=== PATIENT | male | born 1945 | race Caucasian/White ===

== ENCOUNTER 2017-03-09 21:37 | Emergency (ER) | payer MEDICARE, BC, OTHER ==
[2017-03-10 01:17] LABS: Hematocrit 48 % (42-52); Hemoglobin 16.2 g/dl (14.0-18.0); Mean Corpuscular HGB Conc 34 g/dl (31-36); Mean Corpuscular Hemoglobin 30 pg (27-31); Mean Corpuscular Volume 88 fL (80-94); Mean Platelet Volume 8 um3 (7.4-10.4); Red Blood Count 5.41 10^6/ul (4.0-5.4); Red Cell Distribution Width 14 % (10.5-15); White Blood Count 11.1 10^3/ul (3.5-10.8)
[2017-03-10 01:22] LABS: Add Diff/Slide Review? Slide Review Added; Comments Flag Yes
[2017-03-10 01:25] LABS: Albumin 4.4 g/dL (3.2-5.2); BUN/Creatinine Ratio 22.8 (8-20); EGFR African American 93.9 (>60); Globulin 2.4 g/dL (2-4); Total Bilirubin 0.9 mg/dL (0.2-1.0); Total Protein 6.8 g/dL (6.4-8.9)
[2017-03-10 01:27] LABS: Troponin I 0.01 ng/mL (<0.04)
--- NOTE | 2017-03-10 02:22 | ED ---
Kim Ahn Alfonso, scribed for Frank Larkin on 03/10/17 at 0112 . Palpitations / Dysrhythmia - HPI Summary HPI Summary: This patient is a 71 year old M presenting to [facility] with a chief complaint of palpitations since earlier today. The CC is described as you can feel it pumping more and beating a little harder. Pt rates the pain 1/10 in severity. Symptoms aggravated by exertion and alleviated by spontaneous resolution. Pt denies CP, SOB, abdominal pain, N/V, and sciatic pain. PMHx of sciatic pain. - History of Current Complaint Chief Complaint: EDBackInjuryPain Time Seen by Provider: 03/10/17 00:18 Hx Obtained From: Patient Onset/Duration: Sudden Onset, Lasting Hours - Earlier today, Still Present Timing: Intermittent Episodes Lasting: - unspecified Severity Initially: Moderate Severity Currently: Moderate Aggravating: Exertion Associated Signs & Symptoms: Negative - Allergy/Home Medications Allergies/Adverse Reactions: Allergies Allergy/AdvReac Type Severity Reaction Status Date / Time No Known Allergies Allergy Verified 06/29/16 10:50 PMH/Surg Hx/FS Hx/Imm Hx Endocrine/Hematology History: Denies: Hx Diabetes, Hx Thyroid Disease Cardiovascular History: Reports: Hx Angina, Hx Hypercholesterolemia, Hx Hypertension, Other Cardiovascular Problems/Disorders - HIGH CHOLESTEROL Denies: Hx Pacemaker/ICD Respiratory History: Denies: Hx Asthma, Hx Chronic Obstructive Pulmonary Disease (COPD) GI History: Reports: Hx Gall Bladder Disease - Gall bladder removed, Hx Gastroesophageal Reflux Disease - PRN OMEPRAZOLE AND SIMETHICONE, Other GI Disorders - Flat colon polyps removed surgically. 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 10 years ago; gall bladder out. 08/2013 Lap -REMOVAL OF 4" OF colon polyp removal Hx Anesthesia Reactions: No - Immunization History Date of Tetanus Vaccine: Unk Date of Influenza Vaccine: 08/25 Infectious Disease History: No Infectious Disease History: Denies: Hx Hepatitis, Hx Human Immunodeficiency Virus (HIV), History Other Infectious Disease, Traveled Outside the [place] in Last 30 Days - Family History Known Family History: Positive: Hypertension - Social History Alcohol Use: None Substance Use Type: Reports: None Smoking Status (MU): Never Smoked Tobacco Review of Systems Positive: Palpitations. Negative: Chest Pain Negative: Shortness Of Breath Negative: Abdominal Pain, Vomiting, Nausea Positive: Other - Negative sciatic pain All Other Systems Reviewed And Are Negative: Yes Physical Exam Triage Information Reviewed: Yes Vital Signs On Initial Exam: Initial Vitals Temp Pulse Resp BP Pulse Ox 97.9 F 69 18 158/71 100 03/09/17 21:53 03/09/17 21:53 03/09/17 21:53 03/09/17 21:53 03/09/17 21:53 Vital Signs Reviewed: Yes Appearance: Positive: Well-Appearing, No Pain Distress Skin: Positive: Warm, Skin Color Reflects Adequate Perfusion, Dry Head/Face: Positive: Normal Head/Face Inspection Eyes: Positive: EOMI, FLACO ENT: Positive: Normal ENT inspection Neck: Positive: Supple, Nontender Respiratory/Lung Sounds: Positive: Clear to Auscultation, Breath Sounds Present Cardiovascular: Positive: RRR, Pulses are Symmetrical in both Upper and Lower Extremities Abdomen Description: Positive: Nontender, Soft Bowel Sounds: Positive: Present Musculoskeletal: Positive: Normal, Strength/ROM Intact Neurological: Positive: Normal, Sensory/Motor Intact, Alert, Oriented to Person Place, Time - Amelie Coma Scale Coma Scale Total: 15 Diagnostics - Vital Signs Vital Signs Temp Pulse Resp BP Pulse Ox 03/09/17 22:49 98 F 68 16 148/83 96 03/09/17 21:53 97.9 F 69 18 158/71 100 - Laboratory Result Diagrams: 03/10/17 01:00 03/10/17 01:00 Lab Statement: Any lab studies that have been ordered have been reviewed, and results considered in the medical decision making process. - Radiology CXR Radiology Interpretation Completed By: ED Physician - Negative exam. - EKG 0146 Cardiac Rate: Bradycardia - BPM 56 EKG Rhythm: Sinus Bradycardia Course/Dx - Course Assessment/Plan: 71 year old M presenting to [facility] with a chief complaint of palpitations since earlier today. Symptoms aggravated by exertion and alleviated by spontaneous resolution. Pt denies CP, SOB, abdominal pain, N/V, and sciatic pain. CXR reveals negative exam. An EKG reveals SB. Patient will be discharged with follow up from PCP. Pt is agreeable with this plan. - Diagnoses Provider Diagnoses: Heart palpitations Discharge - Discharge Plan Condition: Stable Disposition: HOME Patient Education Materials: Palpitations (ED) Referrals: Sushant Alves MD [Primary Care Provider] - 3 Days The documentation as recorded by the Kim magana Alfonso accurately reflects the service I personally performed and the decisions made by Trae mcneal Emmanuel.
[2017-03-10 02:40] VITALS: BP 126/79
--- NOTE | 2017-03-10 12:50 | RAD ---
INDICATION: Palpitations COMPARISON: Most recent comparison chest x-rays dated May 15, 2015 TECHNIQUE: Single AP portable view of the chest was obtained. FINDINGS: Image quality is compromised due to the relative inferiority of a portable chest x-ray. The heart and mediastinum exhibit normal size and contour. The lungs are grossly clear. There is no evidence of a large pleural effusion. Visualized bones are normal for the patient's age. IMPRESSION: No radiographic evidence for acute cardiopulmonary abnormality on this portable chest x-ray.
== END 2017-03-10 02:40 | disposition home or self-care (01) ==
LOC: ED 21:37
DX: R00.2 Palpitations (principal)
CPT/HCPCS: 36415; 71010; 80053; 83605; 83880; 84484; 85025; 85610; 85730; 93005; 99282

== ENCOUNTER 2017-03-10 15:25 | Emergency (ER) | payer MEDICARE, BC, OTHER ==
[2017-03-10 15:32] VITALS: BP 176/81
== END 2017-03-10 16:32 | disposition left against medical advice (07) ==
LOC: ED 15:25
DX: R07.89 Other chest pain (principal); Z53.21 Procedure and treatment not carried out due to patient leaving prior to being seen by health care provider
CPT/HCPCS: 93005; 99281

== ENCOUNTER 2018-01-26 20:07 | Emergency (ER) | payer MEDICARE, BC, OTHER ==
[2018-01-26 20:20] VITALS: BP 155/70
[2018-01-26] MEDS ORDERED: Tetracaine 0.5% OPTH.SOL 4 ML* 1 DROP BTL RIGHT EYE ONE (20:35)
--- NOTE | 2018-01-26 20:38 | UC ---
Eye Complaint HPI - HPI Summary HPI Summary: PATIENT WAS GRINDING METAL YESTERDAY AFTERNOON WHEN HE FELT SOMETHING GO INTO HIS RIGHT EYE. HE FLUSHED IT WITH WATER BUT HAS HAD PERSISTENT IRRITATION, REDNESS AND TEARING SINCE IT HAPPENED. NO VISUAL DISTURBANCE. NO FEVER, HEADACHE, NAUSEA. WAS NOT WEARING ANY EYE PROTECTION AT THE TIME. HAS BEEN RUBBING HIS EYES A LOT. UNKNOWN DATE OF LAST TETANUS. - History of Current Complaint Chief Complaint: UCEye Stated Complaint: EYE COMPLAINT Time Seen by Provider: 01/26/18 20:31 Hx Obtained From: Patient Onset/Duration: Sudden Onset, Lasting Days - 1 DAY, Still Present Timing: Constant Severity Initially: Mild Severity Currently: Mild Pain Intensity: 1 Pain Scale Used: 0-10 Numeric Location of Injury: Globe Character: Foreign Body Sensation Aggravating Factor(s): Nothing Alleviating Factor(s): Nothing Associated Signs And Symptoms: Positive: Drainage (Clear). Negative: Photophobia, Vision Impairment Bilateral - Allergies/Home Medications Allergies/Adverse Reactions: Allergies Allergy/AdvReac Type Severity Reaction Status Date / Time No Known Allergies Allergy Verified 01/26/18 20:19 PMH/Surg Hx/FS Hx/Imm Hx Endocrine History: Dyslipidemia GI/ History: Gastroesophageal Reflux - Surgical History Surgical History: Yes Surgery Procedure, Year, and Place: 15 years ago; Rt hip repair. 10 years ago; gall bladder out. 08/2013 Lap -REMOVAL OF 4" OF colon polyp removal - Family History Known Family History: Positive: Hypertension - Social History Alcohol Use: None Substance Use Type: None Smoking Status (MU): Never Smoked Tobacco - Immunization History Most Recent Influenza Vaccination: 2013 Most Recent Tetanus Shot: Less than 10 yrs ago Most Recent Pneumonia Vaccination: 2013 Review of Systems Constitutional: Negative Skin: Negative Eyes: Drainage, Eye Redness, Other - FB RIGHT EYE Respiratory: Negative Cardiovascular: Negative Gastrointestinal: Negative All Other Systems Reviewed And Are Negative: Yes Physical Exam Triage Information Reviewed: Yes Appearance: Well-Appearing, No Pain Distress, Well-Nourished Vital Signs: Initial Vital Signs Temp 98.1 F 01/26/18 20:11 Pulse 58 01/26/18 20:11 Resp 16 01/26/18 20:11 BP 155/70 01/26/18 20:11 Pulse Ox 98 01/26/18 20:11 Vital Signs Reviewed: Yes Eyes: Positive: Conjunctiva Inflamed - RIGHT EYE, Other: - FB 9 O'CLOCK POSITION RIGHT EYE ENT: Positive: Hearing grossly normal Neck: Positive: Supple Respiratory: Positive: No respiratory distress, No accessory muscle use Cardiovascular: Positive: Pulses Normal Abdomen Description: Positive: Soft Musculoskeletal: Positive: No Edema Neurological: Positive: Alert Psychological: Positive: Age Appropriate Behavior Skin: Negative: rashes Eye Complaint Course/Dx - Course Course Of Treatment: 1 DROP TETRACAINE INSTILLED INTO RIGHT EYE. ATTEMPTED UNSUCCESSFULLY TO REMOVE FB USING 18 GAUGE NEEDLE. COVER WITH CIPRO EYE DROPS. BOOST TDAP. F/U OPHTH TOMORROW FOR REMOVAL. - Differential Dx/Diagnosis Provider Diagnoses: FB RIGHT EYE -RETAINED Discharge - Sign-Out/Discharge Documenting (check all that apply): Discharge/Admit/Transfer - Discharge Plan Condition: Stable Disposition: HOME Patient Education Materials: Eye Foreign Body (ED) Referrals: Luis Horton MD [Medical Doctor] - If Needed Papa Thornton MD [Medical Doctor] - 1 Day Janusz Caballero MD [Medical Doctor] - 1 Day Additional Instructions: UNABLE TO REMOVE FOREIGN BODY IN YOUR RIGHT EYE TODAY. USE THE ANTIBIOTIC EYEDROPS PRESCRIBED AND CALL OPHTHALMOLOGY FIRST THING IN THE MORNING FOR A FOLLOW-UP APPOINTMENT. TETANUS IMMUNIZATION GIVEN (TDAP): You have been given an immunization against tetanus. Please record this in your records. In general, a booster is needed only once every 10 years. The tetanus shot protects against tetanus or "lockjaw," which is a complication of certain wound infections (the tetanus shot cannot protect against the actual infection). The immunization site may become warm and red due to local reaction. If this occurs, apply warm compresses and take aspirin or ibuprofen to reduce inflammation and discomfort. Return for evaluation if the reaction becomes severe. - Billing Disposition and Condition Condition: STABLE Disposition: Home
[2018-01-26] MEDS ORDERED: Ciprofloxacin 0.3% OPTH.SOL* 2.5 ML BTL RIGHT EYE ONE (20:47)
[2018-01-26] MEDS ORDERED: Tetan/Diph/Pertus SYR(Tdap)* 0.5 ML SYR(BOOSTRIX) use SYR IM ONE (20:52)
== END 2018-01-26 21:15 | disposition home or self-care (01) ==
LOC: UCEAST 20:07
DX: H02.813 Retained foreign body in right eye, unspecified eyelid (principal); Z18.10 Retained metal fragments, unspecified; Z23 Encounter for immunization; E78.5 Hyperlipidemia, unspecified; K21.9 Gastro-esophageal reflux disease without esophagitis; Z82.49 Family history of ischemic heart disease and other diseases of the circulatory system
CPT/HCPCS: 90471; 90715; 99212; A9270-GY; G0463

== ENCOUNTER 2018-01-27 05:07 | Emergency (ER) | payer MEDICARE, BC ==
[2018-01-27 05:38] LABS: ABS Basophils 0 10^3/ul (0-0.2); ABS Eosinophils 0.1 10^3/ul (0-0.6); ABS Monocytes 0.5 10^3/ul (0-0.8); ABS Neutrophils 5.4 10^3/ul (1.5-7.7); ABS Nucleated RBC 0 10^3/ul; Eosinophil % 1.1 % (0-6); Hematocrit 45 % (42-52); Hemoglobin 15.8 g/dl (14.0-18.0); Lymphocyte % 24.8 % (25-47); Mean Corpuscular HGB Conc 35 g/dl (31-36); Mean Corpuscular Hemoglobin 31 pg (27-31); Mean Corpuscular Volume 86 fL (80-94); Mean Platelet Volume 7.5 um3 (7.4-10.4); Nucleated Red Blood Cells % 0.1; Platelet Count 203 10^3/ul (150-450); Red Cell Distribution Width 13 % (10.5-15)
[2018-01-27 05:45] LABS: INR 0.95 (0.77-1.02)
[2018-01-27 05:47] LABS: Urine Appearance Clear; Urine Blood 2+ (Negative); Urine Color Yellow; Urine Ketones Negative (Negative); Urine Protein 1+(30 mg/dL) (Negative); Urine Red Blood Cell 3+(>10/hpf) (Absent); Urine Specific Gravity 1.025 (1.010-1.030); Urine Urobilinogen Negative (Negative); Urine White Blood Cell Trace(0-5/hpf) (Absent)
[2018-01-27 05:59] LABS: EGFR Non-African American 54.4 (>60)
[2018-01-27] MEDS ORDERED: Ketorolac INJ* 30 MG/ML 1 ML VIAL IV PUSH ONE (06:08)
[2018-01-27] MEDS ORDERED: NS 0.9% 1000 ML* 1,000 ML IV ONE ×2 (06:08→07:28)
--- NOTE | 2018-01-27 07:52 | ED ---
Back Pain - HPI Summary HPI Summary: Patient presents with right-sided flank pain which woke him up at 3:00 this morning. He reports this is a "annoying" pain at about 4-5 out of 10. He has not tried anything prior to arrival. He reports the pain is constant. He denies dysuria, urinary frequency, urinary urgency, hematuria, testicular or penile pain. He has had a history of kidney stones and this presented with dysuria. He denies fevers, chills, headache, chest pain, shortness of breath, lower abdominal pain, skin changes, nausea, vomiting, diarrhea. Last ate last night. - History of Current Complaint Chief Complaint: EDFlankPain Stated Complaint: FLANK PAIN Time Seen by Provider: 01/27/18 05:50 Hx Obtained From: Patient Pain Intensity: 5 - Allergies/Home Medications Allergies/Adverse Reactions: Allergies Allergy/AdvReac Type Severity Reaction Status Date / Time No Known Allergies Allergy Verified 01/26/18 20:19 PMH/Surg Hx/FS Hx/Imm Hx Previously Healthy: Yes Endocrine/Hematology History: Denies: Hx Anticoagulant Therapy - ASA DAILY, Hx Blood Disorders, Hx Diabetes , Hx Thyroid Disease Cardiovascular History: Reports: Hx Angina, Hx Hypercholesterolemia - takes a statin, Hx Hypertension - no med Denies: Hx Pacemaker/ICD Respiratory History: Denies: Hx Asthma, Hx Chronic Obstructive Pulmonary Disease (COPD) GI History: Reports: Hx Gall Bladder Disease - Gall bladder removed, Hx Gastroesophageal Reflux Disease - PRN OMEPRAZOLE AND SIMETHICONE, Other GI Disorders - Flat colon polyps removed surgically. 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 10 years ago; gall bladder out. 08/2013 Lap -REMOVAL OF 4" OF colon polyp removal Hx Anesthesia Reactions: No - Immunization History Date of Tetanus Vaccine: Unk Date of Influenza Vaccine: 1/14 Infectious Disease History: No Infectious Disease History: Denies: Hx Hepatitis, Hx Human Immunodeficiency Virus (HIV), History Other Infectious Disease, Traveled Outside the [place] in Last 30 Days - Family History Known Family History: Positive: Hypertension - Social History Occupation: Retired Lives: Alone - with dogs Alcohol Use: Rare Hx Substance Use: No Substance Use Type: Reports: None Hx Tobacco Use: No Smoking Status (MU): Never Smoked Tobacco Review of Systems Constitutional: Negative Cardiovascular: Negative Respiratory: Negative Gastrointestinal: Negative Positive: see HPI Musculoskeletal: Negative Skin: Negative Neurological: Negative Psychological: Normal All Other Systems Reviewed And Are Negative: Yes Physical Exam Triage Information Reviewed: Yes Vital Signs On Initial Exam: Initial Vitals Temp Pulse Resp BP Pulse Ox 97.3 F 62 18 169/67 97 01/27/18 05:08 01/27/18 05:08 01/27/18 05:08 01/27/18 05:08 01/27/18 05:08 Vital Signs Reviewed: Yes Appearance: Positive: Well-Appearing, No Pain Distress, Well-Nourished Skin: Positive: Warm, Skin Color Reflects Adequate Perfusion, Dry Head/Face: Positive: Normal Head/Face Inspection Eyes: Positive: Normal, EOMI ENT: Positive: Normal ENT inspection Neck: Positive: Supple Respiratory/Lung Sounds: Positive: Clear to Auscultation, Breath Sounds Present Cardiovascular: Positive: Normal, RRR, S1, S2. Negative: Leg Edema Left, Leg Edema Right Abdomen Description: Positive: No Organomegaly, Soft, Other: - mild TTP over Rt side. Negative: CVA Tenderness (R), CVA Tenderness (L) Bowel Sounds: Positive: Present Musculoskeletal: Positive: Normal, Strength/ROM Intact Neurological: Positive: Normal, Sensory/Motor Intact, Alert, Oriented to Person Place, Time Psychiatric: Positive: Normal Diagnostics - Vital Signs Vital Signs Temp Pulse Resp BP Pulse Ox 01/27/18 07:00 57 11 95 01/27/18 06:51 54 12 151/74 96 01/27/18 06:21 49 23 169/69 98 01/27/18 06:00 56 24 96 01/27/18 05:51 52 18 159/85 98 01/27/18 05:50 53 18 98 01/27/18 05:08 97.3 F 62 18 169/67 97 - Laboratory Lab Results: Lab Results 06/01/27/18 01/27/18 Range/Units 05:29 05:29 05:29 WBC 8.0 (3.5-10.8) 10^3/ul RBC 5.20 (4.00-5.40) 10^6/ul Hgb 15.8 (14.0-18.0) g/dl Hct 45 (42-52) % MCV 86 (80-94) fL MCH 31 (27-31) pg MCHC 35 (31-36) g/dl RDW 13 (10.5-15) % Plt Count 203 (150-450) 10^3/ul MPV 7.5 (7.4-10.4) um3 Neut % (Auto) 67.6 (38-83) % Lymph % (Auto) 24.8 L (25-47) % [place] % (Auto) 6.1 (0-7) % Eos % (Auto) 1.1 (0-6) % Baso % (Auto) 0.4 (0-2) % Absolute Neuts (auto) 5.4 (1.5-7.7) 10^3/ul Absolute Lymphs (auto) 2.0 (1.0-4.8) 10^3/ul Absolute Monos (auto) 0.5 (0-0.8) 10^3/ul Absolute Eos (auto) 0.1 (0-0.6) 10^3/ul Absolute Basos (auto) 0 (0-0.2) 10^3/ul Absolute Nucleated RBC 0 10^3/ul Nucleated RBC % 0.1 INR (Anticoag Therapy) 0.95 (0.77-1.02) Sodium (135-145) mmol/L Potassium (3.5-5.0) mmol/L Chloride (101-111) mmol/L Carbon Dioxide (22-32) mmol/L Anion Gap (2-11) mmol/L BUN (6-24) mg/dL Creatinine (0.67-1.17) mg/dL Est GFR ( Amer) (>60) Est GFR (Non-Af Amer) (>60) BUN/Creatinine Ratio (8-20) Glucose (70-100) mg/dL Lactic Acid (0.5-2.0) mmol/L Calcium (8.6-10.3) mg/dL Total Bilirubin (0.2-1.0) mg/dL AST (13-39) U/L ALT (7-52) U/L Alkaline Phosphatase (34-104) U/L Troponin I (<0.04) ng/mL C-Reactive Protein (< 5.00) mg/L Total Protein (6.4-8.9) g/dL Albumin (3.2-5.2) g/dL Globulin (2-4) g/dL Albumin/Globulin Ratio (1-3) Lipase (11.0-82.0) U/L Urine Color Yellow Urine Appearance Clear Urine pH 5.0 (5-9) Ur Specific [place] 1.025 (1.010-1.030) Urine Protein 1+(30 mg/dl) A (Negative) Urine Ketones Negative (Negative) Urine Blood 2+ A (Negative) Urine Nitrate Negative (Negative) Urine Bilirubin Negative (Negative) Urine Urobilinogen Negative (Negative) Ur Leukocyte Esterase Negative (Negative) Urine WBC (Auto) Trace(0-5/hpf) (Absent) Urine RBC (Auto) 3+(>10/hpf) A (Absent) Ur Squamous Epith Cells Present A (Absent) Urine Bacteria Absent (Absent) Urine Glucose Negative (Negative) 01/27/18 01/27/18 Range/Units 05:29 05:29 WBC (3.5-10.8) 10^3/ul RBC (4.00-5.40) 10^6/ul Hgb (14.0-18.0) g/dl Hct (42-52) % MCV (80-94) fL MCH (27-31) pg MCHC (31-36) g/dl RDW (10.5-15) % Plt Count (150-450) 10^3/ul MPV (7.4-10.4) um3 Neut % (Auto) (38-83) % Lymph % (Auto) (25-47) % [place] % (Auto) (0-7) % Eos % (Auto) (0-6) % Baso % (Auto) (0-2) % Absolute Neuts (auto) (1.5-7.7) 10^3/ul Absolute Lymphs (auto) (1.0-4.8) 10^3/ul Absolute Monos (auto) (0-0.8) 10^3/ul Absolute Eos (auto) (0-0.6) 10^3/ul Absolute Basos (auto) (0-0.2) 10^3/ul Absolute Nucleated RBC 10^3/ul Nucleated RBC % INR (Anticoag Therapy) (0.77-1.02) Sodium 142 (135-145) mmol/L Potassium 3.9 (3.5-5.0) mmol/L Chloride 104 (101-111) mmol/L Carbon Dioxide 31 (22-32) mmol/L Anion Gap 7 (2-11) mmol/L BUN 18 (6-24) mg/dL Creatinine 1.30 H (0.67-1.17) mg/dL Est GFR ( Amer) 70.0 (>60) Est GFR (Non-Af Amer) 54.4 (>60) BUN/Creatinine Ratio 13.8 (8-20) Glucose 134 H (70-100) mg/dL Lactic Acid 1.2 (0.5-2.0) mmol/L Calcium 9.5 (8.6-10.3) mg/dL Total Bilirubin 1.10 H (0.2-1.0) mg/dL AST 17 (13-39) U/L ALT 15 (7-52) U/L Alkaline Phosphatase 76 (34-104) U/L Troponin I 0.01 (<0.04) ng/mL C-Reactive Protein < 1.00 (< 5.00) mg/L Total Protein 6.5 (6.4-8.9) g/dL Albumin 4.2 (3.2-5.2) g/dL Globulin 2.3 (2-4) g/dL Albumin/Globulin Ratio 1.8 (1-3) Lipase 38 (11.0-82.0) U/L Urine Color Urine Appearance Urine pH (5-9) Ur Specific [place] (1.010-1.030) Urine Protein (Negative) Urine Ketones (Negative) Urine Blood (Negative) Urine Nitrate (Negative) Urine Bilirubin (Negative) Urine Urobilinogen (Negative) Ur Leukocyte Esterase (Negative) Urine WBC (Auto) (Absent) Urine RBC (Auto) (Absent) Ur Squamous Epith Cells (Absent) Urine Bacteria (Absent) Urine Glucose (Negative) Result Diagrams: 01/27/18 05:29 01/27/18 05:29 Lab Statement: Any lab studies that have been ordered have been reviewed, and results considered in the medical decision making process. Re-Evaluation - Re-Evaluation First Eval Change: Improved Back Pain Course/Dx - Course Course Of Treatment: Patient CT scan reveals 5 mm ureteral stone with mild hydronephrosis. He also has 2 small stones within the right kidney. His blood work is unremarkable for acute infection and his UA is positive for hematuria. Discussed case with Dr. Cordova who advises ordering a KUB and monitoring the patient for an additional hour to see if his pain changes. He will be down to consult with the patient. UPDATE: KUB unremarkable for stone. Pain controlled. Dr. Cordova discussed w/ pt - will try passing stone on his own at home with pain meds. Will f/u Art this week and return to ED if worse. - Diagnoses Provider Diagnoses: Right ureteral stone Discharge - Sign-Out/Discharge Documenting (check all that apply): Discharge/Admit/Transfer - Discharge Plan Condition: Stable Disposition: HOME Prescriptions: Ibuprofen TAB* [Motrin TAB* 600 MG] 600 mg PO Q6H PRN #20 tab PRN Reason: Pain Ondansetron ODT TAB* [Zofran 4 MG Odt TAB*] 8 mg PO Q8H PRN #10 tab.odt PRN Reason: Nausea oxyCODONE/Acetamin 5/325 MG* [Percocet 5/325 TAB*] 1 tab PO Q6H PRN #20 tab MDD 4 PRN Reason: Pain Phenazopyridine 200 mg (NF) [Pyridium 200 MG tab *] 200 mg PO TID PRN #6 tab PRN Reason: Pain Patient Education Materials: Kidney Stones (ED), How to Strain Your Urine (ED) Referrals: Bebeto Cordova MD [Medical Doctor] - Additional Instructions: Strain your urine every time you urinate - if you find a stone, save it in sample container and return to Dr. Cordova. Use pain medications as directed. *If you pain is poorly controlled or you develop fever, chills, vomiting despite medication, return to the ED Otherwise, call Dr. Cordova tomorrow to follow-up. - Billing Disposition and Condition Condition: STABLE Disposition: Home
--- NOTE | 2018-01-27 08:24 | RAD ---
INDICATION: Flank pain. History kidney stones. COMPARISON: None TECHNIQUE: Noncontrast axial source images were acquired from the level hemidiaphragms to the symphysis pubis as part of CT imaging for renal stone. Lung bases: The lung bases are clear. Liver: The liver is normal in size. Noncontrast imaging shows no evidence of a hepatic mass or ductal dilatation. Gallbladder: Cholecystectomy. Spleen: The spleen is normal in size. The noncontrast CT appearance is normal. Pancreas: Noncontrast imaging shows no pancreatic mass or ductal dilitation. Adrenal glands: No masses are identified. Kidneys/Bladder: The left kidney is unremarkable. There is moderate right-sided hydronephrosis and proximal hydroureter. There is a 5 mm calculus at the level of the mid right ureter. There is moderate perinephric stranding. There is a nonobstructive 3 mm mid pole right renal calculus. There are no other calcifications of urinary significance. Adenopathy: There is no evidence of intraperitoneal or retroperitoneal adenopathy. Evaluation is limited without oral contrast. Fluid collections: There are no free or localized fluid collections. Vessels: The aorta and iliac vessels are normal in caliber. There are no significant atherosclerotic changes. The IVC appears normal Pelvic organs: The prostate and seminal vesicles appear normal GI tract: Evaluation of the bowel is limited without oral contrast. The stomach, small bowel, and lower GI tract appear grossly normal. There are no obstructive findings. There is appendectomy. Soft tissues: No acute soft tissue abnormalities of the extraperitoneal abdomen or pelvis are identified. There are bilateral fat-containing inguinal hernias. Osseous structures: There is a Kulkarni screw in the right hip. There is spondylitic change of the lumbar spine. IMPRESSION: 5 MM MID RIGHT URETERAL CALCULUS PRODUCING MODERATE OBSTRUCTIVE FINDINGS. ADDITIONAL NONOBSTRUCTIVE MID POLE RIGHT RENAL CALCULUS
--- NOTE | 2018-01-27 08:41 | RAD ---
Indication: Right-sided renal calculus. Flat plate of the abdomen demonstrates right hip pinning. Colon is filled with stool. No dilated loops of bowel are noted. IMPRESSION: Surgical clip in the right colon. No dilated loops of bowel are noted.
[2018-01-27 09:32] VITALS: BP 132/74
--- NOTE | 2018-01-27 11:29 | CONS ---
CC: Luis Horton MD * UROLOGY CONSULTATION NOTE: DATE OF CONSULT: 01/27/18 DIAGNOSES: 1. Calculus, right ureter. 2. Right flank pain. REQUESTING PROVIDER: WINDY Acuña in the emergency department. HISTORY OF PRESENT ILLNESS: Albert Lomeli is a 72-year-old gentleman who presented to the emergency room with right flank pain and nausea. He has had some ill-defined back pain more on the right side over the course of last week, but last night had increasing flank pain which brought him to the emergency room. A CT scan was obtained which reveals a 5 to 6 mm calculus in the proximal to mid right ureter. PAST MEDICAL HISTORY: Significant for gastroesophageal reflux and a history of colonic polyps. PAST SURGICAL HISTORY: Significant for right total hip replacement and partial colon resection for a benign polyp and cholecystectomy. MEDICATIONS ON ADMISSION: 1. P.r.n. omeprazole. 2. Simethicone. ALLERGIES: No known drug allergies. FAMILY HISTORY: Negative for kidney stones. He does have a remote history of having kidney stones himself more than 25 years ago. SOCIAL HISTORY: Smoking History: He is a nonsmoker. REVIEW OF SYSTEMS: He is otherwise in excellent health. There is no history of diabetes mellitus or any other major systemic illness. He denies any chest pain or shortness of breath. PHYSICAL EXAM: Reveals a pleasant elderly gentleman who is in mild discomfort at the time of the evaluation. Blood pressure is 151/74, pulse rate 58 per minute and regular, respirations 14 per minute, temperature is 97.3, oxygen saturation 96% on room air. Cardiovascular: Regular rate and rhythm. S1, S2. Lungs are clear bilaterally. Abdomen is soft with mild right flank tenderness. DIAGNOSTIC STUDIES/LAB DATA: Review of the labs reveals a white count of 8.0, hemoglobin and hematocrit are normal at 15.8 and 45, platelet count is 203,000. His electrolytes were reviewed. Sodium is 142, potassium 3.9, BUN and creatinine are 18 with a mildly elevated creatinine of 1.3 and glucose of 134. Urinalysis shows 2+ blood and absent bacteria. I reviewed the CT scan which reveals a 5 to 6 mm calculus in the proximal to mid right ureter with mild right hydronephrosis and 2 small stones in the right kidney. A KUB was obtained and I am not able to definitively visualize any radiopaque calculi in the kidney or the ureter on the KUB. IMPRESSION: I had a detailed discussion with the patient and with Ashleigh Okeefe regarding the management options. Since the stone is not very big and the obstruction is minimal, I recommend conservative management and discussed this in detail with the patient. I have instructed him to call you if there is any increase in pain, vomiting or fever and otherwise to call me for a followup in 24 to 36 hours and hopefully he should be able to pass this calculus spontaneously. [id number]/[facility] #: [id number] MTDBaron
== END 2018-01-27 09:32 | disposition home or self-care (01) ==
LOC: ED 05:07
DX: N20.2 Calculus of kidney with calculus of ureter (principal); E78.00 Pure hypercholesterolemia, unspecified; I10 Essential (primary) hypertension; Z79.82 Long term (current) use of aspirin; Z86.79 Personal history of other diseases of the circulatory system; Z87.442 Personal history of urinary calculi
CPT/HCPCS: 36415; 74018; 74176; 80053; 81003; 81015; 83605; 83690; 84484; 85025; 85610; 86140; 87086; 93005; 96374; 99282; J1885

== ENCOUNTER → 2018-02-10 14:55 | Day surgery (SDC) | payer MEDICARE, BC ==
[~2018-02-10 14:55] MED LIST: Acetaminophen TAB* 325 MG PO PRN; Buffered Lidocaine 0.9% SYRIN* 5 ML/SYR SYRINGE INTRADERM ONE; Dexamethasone IV* 4 MG/ML 1 ML (4 MG) ONE; DiMENhydriNATE IV* 50 MG/ML VIAL IV PUSH PRN; Famotidine IV* 10 MG/ML 2 ML (20 mg) ONE; Gentamicin ADULT (*) 160 MG in NS 0.9% 100 ML* 100 ML IVPB ONE; HYDROcodone/ACETAMIN 5-325 MG* 1 TAB PO PRN; Iohexol 180 (CONTRAST) 10 ML SDV IV ONE; Lidocaine 2% PF * 5 ML VIAL ONE; Midazolam* 1 MG/ML 2 ML VIAL (2 MG) ONE; Naloxone* 0.4 MG/ML 1 ML VIAL IV PRN; Ondansetron INJ* 2 MG/ML VIAL IV PRN; Ondansetron INJ* 2 MG/ML VIAL ONE; Ondansetron ODT TAB* 4 MG PO PRN; PROCHLORPERAZINE INJ 5 MG/ML 2 ML VIAL IV PRN; Propofol* 10 MG/ML 20 ML BTL IV PUSH ONE; Tamsulosin CAP* 0.4 MG ONE; cefTRIAXone(*) 2 GM ADDV.VIAL IVPB ONE; fentaNYL* 50 MCG/ML 2 ML VIAL (100 MCG VIAL) IV PRN; fentaNYL* 50 MCG/ML 2 ML VIAL (100 MCG VIAL) ONE; oxyCODONE/Acetamin 5/325 MG* TAB ONE
--- NOTE | 2018-02-10 18:50 | RAD ---
CPT II Codes: G9500 INDICATION: Back pain. Fluoroscopic services provided for referring physician. 7 spot images demonstrates placement of a right ureteral stent. IMPRESSION: Right ureteral stent placed. Fluoroscopic services provided for referring physician.
[2018-02-10 20:12] VITALS: BP 149/68
--- NOTE | 2018-02-10 22:20 | OP ---
CC: Dr. Luis Horton * DATE OF OPERATION: 02/10/18 - [facility] DATE OF : 47. SURGEON: Bebeto Cordova M.D. ANESTHESIOLOGIST: Dr. Jacob. ANESTHESIA: General. PRE-OP DIAGNOSIS: Calculus, right ureter. POST-OP DIAGNOSES: Calculus, right ureter plus enlarged prostate. OPERATIVE PROCEDURE: Cystoscopy, right retrograde pyelogram, right ureteroscopy , laser lithotripsy of calculus right ureter, and removal of calculus fragments , and right stent insertion. COMPLICATIONS: None. STENT USED: A 6-[place] stent, right ureter. INDICATIONS: Albert Lomeli is a 72-year-old gentleman who had initially been seen about 2 weeks ago for right flank pain. He continues to have episodic pain secondary to a calculus in the right mid ureter and is now being brought in for right ureteroscopy. OPERATIVE FINDINGS: 1. Enlarged prostate, especially median lobe enlargement. 2. A 7 to 8 mm calculus impacted in right mid ureter with surrounding edema and inflammation, and mild right hydronephrosis. POSTOPERATIVE CONDITION: Stable. DESCRIPTION OF PROCEDURE: After induction of general anesthesia, the patient was placed in dorsal lithotomy position. Sequential compression devices were in place and functioning. Initial cystoscopy revealed a normal-appearing urethra. The prostate was significantly enlarged, especially the median lobe. The bladder was examined and appeared unremarkable except for [id number] trabeculation secondary to the enlarged prostate. Right retrograde pyelogram revealed fullness of the right collecting system. A 6- [place] semirigid ureteroscope was introduced into the right ureter and advanced under direct vision. In the mid right ureter, a fairly large 7 to 8 mm calculus was noted to be impacted with surrounding edema and inflammation. Using a 550 micron Holmium laser, this was broken up into multiple fragments, and all of the fragments were successfully removed from the ureter and sent for analysis. A 6- [place] stent was introduced and positioned under fluoroscopy with good proximal and distal positioning obtained. The bladder was emptied. The patient tolerated the procedure satisfactorily and was transferred back to the recovery area in stable condition. [id number]/[facility] #: [id number] MTDD
== END | disposition home or self-care (01) ==
LOC: OR 14:55
PROVIDERS: ATTEND Urology
DX: N40.0 Benign prostatic hyperplasia without lower urinary tract symptoms (principal); N13.2 Hydronephrosis with renal and ureteral calculous obstruction; I10 Essential (primary) hypertension; E78.00 Pure hypercholesterolemia, unspecified; F41.9 Anxiety disorder, unspecified; K21.9 Gastro-esophageal reflux disease without esophagitis; Z86.010 Personal history of colon polyps
CPT/HCPCS: 74420; 82365; 88300; A9270-GY; C1876; J0696; J1100; J1580; J2250; J2405; J2704; J3010

== ENCOUNTER 2018-03-29 20:47 | Emergency (ER) | payer MEDICARE, BC ==
[2018-03-29 21:32] LABS: ABS Basophils 0.1 10^3/ul (0-0.2); ABS Eosinophils 0.1 10^3/ul (0-0.6); ABS Lymphocytes 2.6 10^3/ul (1.0-4.8); ABS Monocytes 0.7 10^3/ul (0-0.8); ABS Neutrophils 4.9 10^3/ul (1.5-7.7); ABS Nucleated RBC 0 10^3/ul; Eosinophil % 1.6 % (0-6); Hematocrit 44 % (42-52); Hemoglobin 15.6 g/dl (14.0-18.0); Lymphocyte % 30.6 % (25-47); Mean Corpuscular HGB Conc 35 g/dl (31-36); Mean Corpuscular Hemoglobin 30 pg (27-31); Mean Corpuscular Volume 86 fL (80-94); Mean Platelet Volume 7.5 um3 (7.4-10.4); Nucleated Red Blood Cells % 0; Platelet Count 194 10^3/ul (150-450); Red Blood Count 5.14 10^6/ul (4.00-5.40); Red Cell Distribution Width 14 % (10.5-15); White Blood Count 8.4 10^3/ul (3.5-10.8)
[2018-03-29 21:47] LABS: EGFR Non-African American 62.7 (>60)
[2018-03-29] MEDS ORDERED: Ketorolac INJ* 30 MG/ML 1 ML VIAL IV PUSH PRN (22:29)
[2018-03-29] MEDS ORDERED: Morphine INJ* 2 MG/ML 1 ML SYRINGE (TWO MG - NEW SYRINGE VERSION) IV ONE (22:29)
--- NOTE | 2018-03-29 23:09 | ED ---
Abdominal Pain/Male - HPI Summary HPI Summary: This patient is a 72 year old M presenting to [facility] with a chief complaint of R flank pain that began 2 weeks ago that worsened today. The patient rates the pain 6/10 in severity. Symptoms aggravated by nothing. Symptoms alleviated by nothing. Patient reports cramping in backs of legs and depression. Patient denies nausea, testicular pain, fever, chills, headache, double vision, blurred vision, ear ache, sore throat, CP, SOB, edema, hematuria, bruising, and anxiety. Patient reports having a previous kidney stone and stenting. - History of Current Complaint Chief Complaint: EDFlankPain Stated Complaint: RIGHT SIDE FLANK PAIN Hx Obtained From: Patient Onset/Duration: Sudden Onset, Lasting Weeks, Resolved, Worse Since - Today Severity Initially: Moderate Severity Currently: Moderate Pain Intensity: 6 Pain Scale Used: 0-10 Numeric Location: Flank Radiates: No Aggravating Factor(s): Nothing Alleviating Factor(s): Nothing Associated Signs And Symptoms: Positive: Other - Positive cramping in backs of legs and depression. Negative nausea, testicular pain, fever, chills, headache, double vision, blurred vision, ear ache, sore throat, CP, SOB, edema, hematuria , bruising, and anxiety. - Allergies/Home Medications Allergies/Adverse Reactions: Allergies Allergy/AdvReac Type Severity Reaction Status Date / Time No Known Allergies Allergy Verified 02/10/18 16:05 PMH/Surg Hx/FS Hx/Imm Hx Previously Healthy: No Endocrine/Hematology History: Denies: Hx Anticoagulant Therapy - ASA DAILY, Hx Blood Disorders, Hx Diabetes , Hx Thyroid Disease Cardiovascular History: Reports: Hx Angina, Hx Hypercholesterolemia - takes a statin, Hx Hypertension - no med Denies: Hx Pacemaker/ICD Respiratory History: Denies: Hx Asthma, Hx Chronic Obstructive Pulmonary Disease (COPD) GI History: Reports: Hx Gall Bladder Disease - Gall bladder removed, Hx Gastroesophageal Reflux Disease - PRN OMEPRAZOLE AND SIMETHICONE, Other GI Disorders - Flat colon polyps removed surgically. 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 10 years ago; gall bladder out. 08/2013 Lap -REMOVAL OF 4" OF colon polyp removal Hx Anesthesia Reactions: No - Immunization History Date of Tetanus Vaccine: Unk Date of Influenza Vaccine: 08/25 Infectious Disease History: No Infectious Disease History: Denies: Hx Hepatitis, Hx Human Immunodeficiency Virus (HIV), History Other Infectious Disease, Traveled Outside the [place] in Last 30 Days - Family History Known Family History: Positive: Hypertension - Social History Occupation: Retired Lives: Alone Alcohol Use: None Hx Substance Use: No Substance Use Type: Reports: None Hx Tobacco Use: No Smoking Status (MU): Never Smoked Tobacco Review of Systems Negative: Fever, Chills Negative: Blurred Vision, Diplopia Negative: Sore Throat Negative: Chest Pain Negative: Shortness Of Breath Positive: Other - Positive flank pain Genitourinary: Other - Negative testicular pain Negative: hematuria Negative: Edema Negative: Bruising Negative: Headache Positive: Depressed. Negative: Anxious All Other Systems Reviewed And Are Negative: No Physical Exam - Summary Physical Exam Summary: Appearance: Alert, conversive, nontoxic appearing Skin: Warm, dry, no mottling, no rashes, no contusions HEENT: EOMI, PERRL, moist mucous membranes Neck: No masses on the neck, supple Respiratory: Clear to auscultation, breath sounds present, no rales, no rhonchi , no wheezes Cardiovascular: RRR, pulses are symmetrical in both lower and upper extremities Abdomen: Soft, non-tender. No flank tenderness Bowel Sounds: Present Musculoskeletal: No CVA tenderness, no obvious deformity, moving all extremities in a grossly normal manner Neurological: A&Ox3, CN II-XII Intact, moving all extremities symmetrically Psychiatric: Normal affect and mood Triage Information Reviewed: Yes Vital Signs On Initial Exam: Initial Vitals Temp Pulse Resp BP Pulse Ox 98.2 F 71 20 171/83 98 03/29/18 20:49 03/29/18 20:49 03/29/18 20:49 03/29/18 20:49 03/29/18 20:49 Vital Signs Reviewed: Yes Diagnostics - Vital Signs Vital Signs Temp Pulse Resp BP Pulse Ox 03/29/18 22:36 20 03/29/18 22:00 73 99 03/29/18 21:50 62 186/82 98 03/29/18 20:49 98.2 F 71 20 171/83 98 - Laboratory Lab Results: Lab Results 03/29/18 03/29/18 03/29/18 Range/Units 21:23 21:23 21:23 WBC 8.4 (3.5-10.8) 10^3/ul RBC 5.14 (4.00-5.40) 10^6/ul Hgb 15.6 (14.0-18.0) g/dl Hct 44 (42-52) % MCV 86 (80-94) fL MCH 30 (27-31) pg MCHC 35 (31-36) g/dl RDW 14 (10.5-15) % Plt Count 194 (150-450) 10^3/ul MPV 7.5 (7.4-10.4) um3 Neut % (Auto) 59.0 (38-83) % Lymph % (Auto) 30.6 (25-47) % [place] % (Auto) 8.1 H (0-7) % Eos % (Auto) 1.6 (0-6) % Baso % (Auto) 0.7 (0-2) % Absolute Neuts (auto) 4.9 (1.5-7.7) 10^3/ul Absolute Lymphs (auto) 2.6 (1.0-4.8) 10^3/ul Absolute Monos (auto) 0.7 (0-0.8) 10^3/ul Absolute Eos (auto) 0.1 (0-0.6) 10^3/ul Absolute Basos (auto) 0.1 (0-0.2) 10^3/ul Absolute Nucleated RBC 0 10^3/ul Nucleated RBC % 0 Sodium 142 (135-145) mmol/L Potassium 3.7 (3.5-5.0) mmol/L Chloride 105 (101-111) mmol/L Carbon Dioxide 31 (22-32) mmol/L Anion Gap 6 (2-11) mmol/L BUN 21 (6-24) mg/dL Creatinine 1.15 (0.67-1.17) mg/dL Est GFR ( Amer) 75.9 (>60) Est GFR (Non-Af Amer) 62.7 (>60) BUN/Creatinine Ratio 18.3 (8-20) Glucose 121 H (70-100) mg/dL Lactic Acid 1.2 (0.5-2.0) mmol/L Calcium 9.4 (8.6-10.3) mg/dL Total Bilirubin 1.00 (0.2-1.0) mg/dL AST 19 (13-39) U/L ALT 17 (7-52) U/L Alkaline Phosphatase 68 (34-104) U/L C-Reactive Protein 1.34 (<8.01) mg/L Total Protein 7.0 (6.4-8.9) g/dL Albumin 4.6 (3.2-5.2) g/dL Globulin 2.4 (2-4) g/dL Albumin/Globulin Ratio 1.9 (1-3) Lipase 48 (11.0-82.0) U/L Result Diagrams: 03/29/18 21:23 03/29/18 21:23 Lab Statement: Any lab studies that have been ordered have been reviewed, and results considered in the medical decision making process. - CT CT Abdomen and Pelvis CT Interpretation Completed By: Radiologist - Abdomen/Pelvis CT reveals, per radiologist, no acute findings. ED physician has reviewed this radiology report. - EKG 2215 Cardiac Rate: NL EKG Rhythm: Sinus Rhythm - [address] Segment: Normal EKG Interpretation: Prolonged VA interval Abdominal Pain Fem Course/Dx - Course Course Of Treatment: This patient is a 72 year old M presenting to [facility] with a chief complaint of R flank pain that began 2 weeks ago that worsened today. Patient reports having a previous kidney stone and stenting. Physical Exam Findings: No flank tenderness. An EKG reveals normal sinus rhythm at 61 BPM and prolonged VA interval. Abdomen/Pelvis CT reveals, per radiologist, no acute findings. Bloodwork and UA obtained. In the ED course the patient was given Toradol and morphine. Patient will be discharged with follow up from PCP. The patient is agreeable with this plan. - Diagnoses Provider Diagnoses: Abdominal pain, Hematuria Discharge - Sign-Out/Discharge Documenting (check all that apply): Patient Departure - Discharge - Discharge Plan Referrals: Luis Horton MD [Primary Care Provider] - Attestations Scribe Attestation: This is scribe Melba Day documenting for attending Mariana Gr MD. User Type: Provider with Scribe Provider Attestation: The documentation recorded by the scribe accurately reflects the service I personally performed and the decisions made by me.
[2018-03-29 23:55] LABS: Urine Appearance Clear; Urine Blood 1+ (Negative); Urine Color Yellow; Urine Ketones Negative (Negative); Urine Protein Negative (Negative); Urine Red Blood Cell 2+(6-10/hpf) (Absent); Urine Specific Gravity 1.026 (1.010-1.030); Urine Urobilinogen Positive (Negative); Urine White Blood Cell Trace(0-5/hpf) (Absent)
--- NOTE | 2018-03-30 00:22 | RAD ---
EXAM: CT Abdomen and Pelvis Without Intravenous Contrast CLINICAL HISTORY: 72 years old, male; Pain; Abdominal pain; Flank; Right; Additional info: Right flank pain, renal stone protocol TECHNIQUE: Axial computed tomography images of the abdomen and pelvis without intravenous contrast. Coronal and sagittal reformatted images were created and reviewed. COMPARISON: A/P WO CT ABD/PEL W/O 2018-01-27 05:40 FINDINGS: Lung bases: No focal pneumonia or segmental atelectasis. ABDOMEN: Liver: Unremarkable. Gallbladder and bile ducts: Cholecystectomy clips. No ductal dilation. Pancreas: Unremarkable. No ductal dilation. Spleen: Unremarkable. No splenomegaly. Adrenals: Unremarkable. No mass. Kidneys and ureters: Nonobstructing right renal stones and. Stomach and bowel: Unremarkable. No obstruction. No mucosal thickening. PELVIS: Appendix: Surgical clips in the right lower quadrant from presumed appendectomy. Bladder: Unremarkable. No stones. Reproductive: Unremarkable as visualized. ABDOMEN and PELVIS: Intraperitoneal space: Unremarkable. No free air. No significant fluid collection. Bones/joints: Orthopedic hardware present in the right hip. Degenerative changes of the lumbar spine. Stable compression deformities of T8 and T9. No dislocation. Soft tissues: Bilateral fat containing inguinal hernias. Vasculature: Atherosclerotic calcification. No abdominal aortic aneurysm. Lymph nodes: Unremarkable. No enlarged lymph nodes. IMPRESSION: 1. No acute findings. R0
[2018-03-30] MEDS ORDERED: Ibuprofen TAB* 600 MG PO ONE (01:36)
[2018-03-30] MEDS ORDERED: Ibuprofen TAB* 800 MG PO ONE (01:37)
[2018-03-30 01:43] VITALS: BP 140/85
== END 2018-03-30 01:40 | disposition home or self-care (01) ==
LOC: ED 20:47
DX: R10.9 Unspecified abdominal pain (principal); R31.9 Hematuria, unspecified; Z87.442 Personal history of urinary calculi; Z90.89 Acquired absence of other organs
CPT/HCPCS: 36415; 74176; 80053; 81003; 81015; 83605; 83690; 85025; 86140; 87086; 93005; 96374; 96375; 99283; A9270-GY; J1885; J2270

== ENCOUNTER 2018-09-24 19:24 | Inpatient (IN) | payer MEDICARE, BC ==
[2018-09-24 21:07] LABS: ABS Basophils 0 10^3/ul (0-0.2); ABS Eosinophils 0 10^3/ul (0-0.6); ABS Lymphocytes 1.7 10^3/ul (1.0-4.8); ABS Monocytes 0.4 10^3/ul (0-0.8); ABS Neutrophils 4.8 10^3/ul (1.5-7.7); ABS Nucleated RBC 0 10^3/ul; Eosinophil % 0.5 %; Hematocrit 47 % (42-52); Hemoglobin 16.2 g/dl (14.0-18.0); Lymphocyte % 24.6 %; Mean Corpuscular HGB Conc 35 g/dl (31-36); Mean Corpuscular Hemoglobin 30 pg (27-31); Mean Corpuscular Volume 86 fL (80-94); Mean Platelet Volume 7.6 fL (7.4-10.4); Nucleated Red Blood Cells % 0; Platelet Count 165 10^3/ul (150-450); Red Blood Count 5.46 10^6/ul (4.00-5.40); Red Cell Distribution Width 14 % (10.5-15)
[2018-09-24 21:28] LABS: ALT 223 U/L (7-52); AST 244 U/L (13-39); Albumin 4.4 g/dL (3.2-5.2); Albumin/Globulin Ratio 1.9 (1-3); Alkaline Phosphatase 160 U/L (34-104); Anion Gap 5 mmol/L (2-11); Blood Urea Nitrogen 15 mg/dL (6-24); C Reactive Protein < 1.00 mg/L (<8.01); CO2 Carbon Dioxide 30 mmol/L (22-32); Calcium 9.6 mg/dL (8.6-10.3); Chloride 105 mmol/L (101-111); EGFR African American 89.1 (>60); EGFR Non-African American 73.7 (>60); Globulin 2.3 g/dL (2-4); Glucose 118 mg/dL (70-100); Potassium 4.2 mmol/L (3.5-5.0); Sodium 140 mmol/L (135-145); Total Protein 6.7 g/dL (6.4-8.9)
--- NOTE | 2018-09-24 21:30 | ED ---
Abdominal Pain/Male - HPI Summary HPI Summary: This patient is a 72 year old M presenting to [facility] with a chief complaint of intermittent, epigastric abdominal pain that began 3 days ago. The patient rates the pain 5/10 in severity. Symptoms aggravated by deep breaths. Symptoms alleviated by nothing. Patient reports back pain. Patient denies nausea and vomiting. Patient states he has a history of GERD. - History of Current Complaint Chief Complaint: EDAbdPain Stated Complaint: ABD PAIN Time Seen by Provider: 09/24/18 21:19 Hx Obtained From: Patient Onset/Duration: Sudden Onset, Lasting Days, Still Present Timing: Intermittent Severity Initially: Moderate Severity Currently: Moderate Pain Intensity: 5 Pain Scale Used: 0-10 Numeric Location: Epigastric Radiates: No Aggravating Factor(s): Deep Breaths Alleviating Factor(s): Position Associated Signs And Symptoms: Negative: Nausea, Vomiting - Allergies/Home Medications Allergies/Adverse Reactions: Allergies Allergy/AdvReac Type Severity Reaction Status Date / Time No Known Allergies Allergy Verified 09/24/18 19:33 PMH/Surg Hx/FS Hx/Imm Hx Previously Healthy: No Endocrine/Hematology History: Denies: Hx Anticoagulant Therapy - ASA DAILY, Hx Blood Disorders, Hx Diabetes , Hx Thyroid Disease Cardiovascular History: Reports: Hx Angina, Hx Hypercholesterolemia - takes a statin, Hx Hypertension - no med Denies: Hx Pacemaker/ICD Respiratory History: Denies: Hx Asthma, Hx Chronic Obstructive Pulmonary Disease (COPD) GI History: Reports: Hx Gall Bladder Disease - Gall bladder removed, Hx Gastroesophageal Reflux Disease - PRN OMEPRAZOLE AND SIMETHICONE, Other GI Disorders - Flat colon polyps removed surgically. 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 10 years ago; gall bladder out. 08/2013 Lap -REMOVAL OF 4" OF colon polyp removal Hx Anesthesia Reactions: No - Immunization History Date of Tetanus Vaccine: Unk Date of Influenza Vaccine: 08/25 Infectious Disease History: No Infectious Disease History: Denies: Hx Hepatitis, Hx Human Immunodeficiency Virus (HIV), History Other Infectious Disease, Traveled Outside the [place] in Last 30 Days - Family History Known Family History: Positive: Hypertension - Social History Occupation: Retired Lives: Alone Alcohol Use: None Hx Substance Use: No Substance Use Type: Reports: None Hx Tobacco Use: No Smoking Status (MU): Never Smoked Tobacco Review of Systems Positive: Abdominal Pain. Negative: Vomiting, Nausea Positive: Other - Positive back pain All Other Systems Reviewed And Are Negative: Yes Physical Exam - Summary Physical Exam Summary: VITAL SIGNS: Reviewed. GENERAL: Patient is a well-developed and nourished male who is lying comfortable in the stretcher. Patient is not in any acute respiratory distress. HEAD AND FACE: No signs of trauma. No ecchymosis, hematomas or skull depressions. No sinus tenderness. EYES: PERRLA, EOMI x 2, No injected conjunctiva, no nystagmus. EARS: Hearing grossly intact. Ear canals and tympanic membranes are within normal limits. MOUTH: Oropharynx within normal limits. NECK: Supple, trachea is midline, no adenopathy, no JVD, no carotid bruit, no c- spine tenderness, neck with full ROM. CHEST: Symmetric, no tenderness at palpation LUNGS: Clear to auscultation bilaterally. No wheezing or crackles. CVS: Regular rate and rhythm, S1 and S2 present, no murmurs or gallops appreciated. ABDOMEN: Soft, non-tender. No signs of distention. No rebound no guarding, and no masses palpated. Bowel sounds are normal. EXTREMITIES: FROM in all major joints, no edema, no cyanosis or clubbing. NEURO: Alert and oriented x 3. No acute neurological deficits. Speech is normal and follows commands. SKIN: Dry and warm Triage Information Reviewed: Yes Vital Signs On Initial Exam: Initial Vitals Temp Pulse Resp BP Pulse Ox 98.2 F 58 16 167/86 95 09/24/18 19:30 09/24/18 19:30 09/24/18 19:30 09/24/18 19:30 09/24/18 19:30 Vital Signs Reviewed: Yes Diagnostics - Vital Signs Vital Signs Temp Pulse Resp BP Pulse Ox 09/24/18 19:30 98.2 F 58 16 167/86 95 - Laboratory Lab Results: Lab Results 09/24/18 Range/Units 20:54 WBC 7.0 (3.5-10.8) 10^3/ul RBC 5.46 H (4.00-5.40) 10^6/ul Hgb 16.2 (14.0-18.0) g/dl Hct 47 (42-52) % MCV 86 (80-94) fL MCH 30 (27-31) pg MCHC 35 (31-36) g/dl RDW 14 (10.5-15) % Plt Count 165 (150-450) 10^3/ul MPV 7.6 (7.4-10.4) fL Neut % (Auto) 68.5 % Lymph % (Auto) 24.6 % [place] % (Auto) 6.1 % Eos % (Auto) 0.5 % Baso % (Auto) 0.3 % Absolute Neuts (auto) 4.8 (1.5-7.7) 10^3/ul Absolute Lymphs (auto) 1.7 (1.0-4.8) 10^3/ul Absolute Monos (auto) 0.4 (0-0.8) 10^3/ul Absolute Eos (auto) 0 (0-0.6) 10^3/ul Absolute Basos (auto) 0 (0-0.2) 10^3/ul Absolute Nucleated RBC 0 10^3/ul Nucleated RBC % 0 Result Diagrams: 09/24/18 20:54 09/24/18 20:54 Lab Statement: Any lab studies that have been ordered have been reviewed, and results considered in the medical decision making process. - CT CT abd/pel CT Interpretation Completed By: Radiologist Summary of CT Findings: 1. Stable nonobstructive right nephrolithiasis. 2. Stable colonic diverticulosis without evidence for acute diverticulitis. ED physician has reviewed this radiology report. - Additional Comments Diagnostic Additional Comments: Gallbladder US reveals, per radiologist, status post cholecystectomy. No acute process seen in the right upper quadrant. ED physician has reviewed this radiology report. Abdominal Pain Fem Course/Dx - Course Assessment/Plan: This patient is a 72 year old M presenting to [facility] with a chief complaint of intermittent, epigastric abdominal pain that began 3 days ago. Gallbladder US reveals, per radiologist, status post cholecystectomy. No acute process seen in the right upper quadrant. CT abd/pel reveals 1. Stable nonobstructive right nephrolithiasis. 2. Stable colonic diverticulosis without evidence for acute diverticulitis. Consult with Dr. Rowland (GI) at [phone]. She communicated that we should get a CT of the abdomen, if the CT is inconclusive, the patient should be admitted for MRCP. Consulted Dr. Delgado at 0137 who accepts the patient for admission. The patient will be admitted to Dr. Delgado. Patient understands and agrees with this plan. - Diagnoses Provider Diagnoses: Biliary obstruction - Provider Notifications Discussed Care Of Patient With: Doris Rowland Time Discussed With Above Provider: 22:58 Instructed by Provider To: Other - Consult with Dr. Rowland (GI) at [id number]. She communicated that we should get a CT of the abdomen, if the CT is inconclusive, the patient should be admitted for MRCP. Consulted Dr. Delgado at 0137 who accepts the patient for admission. Discharge - Sign-Out/Discharge Documenting (check all that apply): Patient Departure - admit - Discharge Plan Condition: Stable Disposition: ADMITTED TO [facility] Referrals: Luis Horton MD [Primary Care Provider] - - Attestation Statements Document Initiated by Scribe: Yes Documenting Scribe: Melba Dahl Provider For Whom Tera is Documenting (Include Credential): Dr. Urmila Hanson MD Scribe Attestation: IMelba, scribed for Dr. Urmila Hanson MD on 09/25/18 at 0137. Status of Scribe Document: Ready
[2018-09-24] MEDS ORDERED: Morphine VIAL* 10 MG/ML 1 ML VIAL IV ONE (21:32)
[2018-09-24] MEDS ORDERED: Pantoprazole IV* 40 MG IV ONE (21:32)
[2018-09-24] MEDS ORDERED: Ondansetron INJ* 2 MG/ML VIAL IV ONE (21:32)
[2018-09-24] MEDS ORDERED: NS 0.9% 1000 ML** 1,000 ML IV SCH (21:45)
[2018-09-24] MEDS ORDERED: Iohexol 300* (CONTRAST) 10 ML SDV IV ONE (23:34)
[2018-09-25] MEDS ORDERED: Ondansetron INJ* 2 MG/ML VIAL IV PRN (02:01)
[2018-09-25] MEDS ORDERED: Senna TAB PO PRN (02:01)
[2018-09-25] MEDS ORDERED: Al Hydrox/Mg Hydrox/Simet LIQ* 30 ML UDC PO PRN (02:01)
[2018-09-25] MEDS ORDERED: Acetaminophen TAB* 325 MG PO PRN (02:01)
[2018-09-25] MEDS ORDERED: Morphine INJ* 2 MG/ML 1 ML SYRINGE (TWO MG - NEW SYRINGE VERSION) IV PRN (02:01)
[2018-09-25] MEDS ORDERED: Docusate CAP* 100 MG PO PRN (02:01)
[2018-09-25] MEDS: NS 0.9% 1000 ML** 1,000 ML IV SCH ×2 (03:34→15:44)
[2018-09-25 05:22] LABS: ABS Basophils 0 10^3/ul (0-0.2); ABS Eosinophils 0 10^3/ul (0-0.6); ABS Lymphocytes 1.5 10^3/ul (1.0-4.8); ABS Monocytes 0.4 10^3/ul (0-0.8); ABS Neutrophils 2.7 10^3/ul (1.5-7.7); ABS Nucleated RBC 0 10^3/ul; Hematocrit 42 % (42-52); Hemoglobin 14.6 g/dl (14.0-18.0); Lymphocyte % 32.3 %; Mean Corpuscular HGB Conc 34 g/dl (31-36); Mean Corpuscular Hemoglobin 30 pg (27-31); Mean Corpuscular Volume 86 fL (80-94); Mean Platelet Volume 7.4 fL (7.4-10.4); Nucleated Red Blood Cells % 0.1; Platelet Count 154 10^3/ul (150-450); Red Blood Count 4.92 10^6/ul (4.00-5.40); Red Cell Distribution Width 13 % (10.5-15); White Blood Count 4.7 10^3/ul (3.5-10.8)
--- NOTE | 2018-09-25 05:22 | HP ---
CC: Luis Horton MD * HISTORY AND PHYSICAL: DATE OF ADMISSION: 09/25/18 TIME OF EVALUATION: 0200. PRIMARY ARE PHYSICIAN: Luis Horton MD CHIEF COMPLAINT: Abdominal pain. HISTORY OF PRESENT ILLNESS: This is a 72-year-old male with past medical history of GERD, who presented to the emergency room with 2 days of epigastric right upper quadrant pain. The patient states he developed epigastric right upper quadrant pain 2 days ago, it is similar to his symptoms of gastritis in the past, it got better and returned yesterday. He had similar episode prior to arrival to the emergency room around 5 p.m. yesterday, the pain returned and had persisted. He was having a hard time taking a deep breath and he thought he should come to the emergency room for further evaluation. The pain has since resolved on my encounter after getting Zofran 8 mg, 10 mg of Morphine, Protonix 40 mg IV. The patient states he denies any fevers or chills. He has had normal bowel movements. No urinary symptoms. No nausea or vomiting. No chest pain or shortness of breath. He states he had EGD with Dr. Ariza in the fall of 2017. He states that it showed some irritation. He thought it was gastritis. He also had colonoscopy in August 2018 that was unremarkable. He was at that time lowered on his Protonix dosing. He states 3 days ago, he was diagnosed with tooth infection. He was started on amoxicillin and also started taking ibuprofen. He thought this was related to initiating ibuprofen use. No significant changes in his weight, he states it goes up and down. Other than antibiotic and ibuprofen, no other new medication changes. In the emergency room , the patient had labs, imaging, it was concerning for choledocholithiasis. GI was called, recommended admission and MRCP. PAST MEDICAL HISTORY: 1. History of GERD. 2. Hyperlipidemia. 3. History of colon polyps, status post resection. 4. History of hypertension. 5. History of chronic back pain with sciatica. 6. History of nephrolithiasis. 7. Depression. 8. History of cholecystectomy 10 years ago. MEDICATIONS: Med rec needs to be obtained. 1. The patient states he is taking amoxicillin for tooth pain. 2. Baby aspirin. 3. Protonix daily. 4. Prozac 10 mg daily. ALLERGIES: No known drug allergies. SOCIAL HISTORY: The patient lives alone. He is independent of his ADLs. His healthcare proxy is his daughter. No smoking, alcohol, or illicit drug use. Code status is full code. FAMILY HISTORY: Mother , unknown. Father at age 80 from an ME. REVIEW OF SYSTEMS: A 14-point review of systems as mentioned in the HPI, otherwise negative. PHYSICAL EXAMINATION GENERAL: In no acute distress, sitting upright on the stretcher. VITAL SIGNS: Temp 98.2, pulse rate 51, respiratory rate 17, oxygen saturation 95 % on room air, blood pressure 146/72. HEENT: Head: Normocephalic. Pupils are equal and reactive. Anicteric. Oropharynx, mucous membranes are moist and positive posterior erythema. NECK: Supple. No adenopathy. No nuchal rigidity. RESPIRATORY: Clear to auscultation. No wheezes, rhonchi, or rales. CARDIAC: Regular rate and rhythm. Soft systolic murmur heard throughout. ABDOMEN: Positive bowel sounds, soft, and mild epigastric right upper quadrant tenderness. No rebound. No guarding. EXTREMITIES: No clubbing, cyanosis, or edema. +1 DPs. NEUROLOGICAL: Alert and oriented x3. No gross focal neurologic deficits. LABORATORY DATA: White count 7.0, hemoglobin 16.2, hematocrit 47, platelets 165. Sodium 140, potassium 4.2, chloride 105, bicarb 30, BUN 15, creatinine 1, glucose 118. Total bili 2.8. AST 244, ALT 223. Alk phos 160. CRP is less than 1. RADIOGRAPHIC DATA: Gallbladder ultrasound, status post cholecystectomy, no acute process seen in the right upper quadrant. Abdomen and pelvis CT, stable nonobstructive right nephrolithiasis, stable colonic diverticulosis without evidence for acute diverticulitis. ASSESSMENT AND PLAN: This is a 72-year-old male with past medical history of gastroesophageal reflux disease and cholecystectomy, who presented to the emergency room with epigastric right upper quadrant pain, found to have elevated LFTs and bili elevated alk phos. 1. Abdominal pain. Assessment: Concern for choledocholithiasis less likely gastritis with recent initiation of ibuprofen. GI has been contacted, they recommend MRCP. Plan, the patient is pain-free currently. We will admit him for MRCP, repeat his labs this morning. Continue pain control on IV fluids. We will keep him n.p.o. for now. 2. Chronic medical problem. Gastroesophageal reflux disease. Continue his Protonix. 3. Tooth pain. Continue amoxicillin. 4. Depression. Continue Prozac. 5. We will need to get complete med rec to order his home meds accordingly. We will hold his baby aspirin for now in case patient does need to undergo any sort of invasive procedure. 6. FEN. NPO except for ice chips, IV fluids. 7. DVT prophylaxis. The patient scores high risk. We will place him on heparin subcu t.i.d. 8. Code status. Full code. PATIENT TIME: Greater than 35 minutes was spent doing the history and physical , more than half the time was spent in direct patient contact. [id number]/CPS #: [id number]
[2018-09-25 05:50] LABS: Albumin 3.8 g/dL (3.2-5.2); BUN/Creatinine Ratio 12.1 (8-20); EGFR African American 90.2 (>60); EGFR Non-African American 74.5 (>60); Globulin 1.9 g/dL (2-4); Indirect Bilirubin 2.1 mg/dL (0.3-1.0); Potassium 3.8 mmol/L (3.5-5.0); Total Bilirubin 3.7 mg/dL (0.2-1.0); Total Protein 5.7 g/dL (6.4-8.9)
[2018-09-25] MEDS: Heparin VIAL(*) 5000 UNITS/ML VIAL (FIVE THOUSAND) SUBCUT SCH ×2 (06:21→15:33)
[2018-09-25] MEDS ORDERED: Pantoprazole TAB * 40 MG TAB PO SCH (09:00)
[2018-09-25] MEDS: Amoxicillin PO (*) 500 MG CAP PO SCH ×2 (10:38→15:33)
[2018-09-25 14:58] VITALS: BP 138/62
--- NOTE | 2018-09-25 20:23 | DS ---
CC: Dr. Luis Horton; Dr. Guerrero, hospitalist, [facility]; Dr. Munoz; Dr. Ariza, [facility] * DISCHARGE/TRANSFER SUMMARY: DATE OF ADMISSION: 09/25/18 DATE OF TRANSFER: 09/25/18 PRIMARY CARE PROVIDER: Dr. Luis Horton. ACCEPTING PHYSICIAN: Dr. Guerrero, hospitalist at [facility]. CONSULTING LEAD SECURITY OFFICER: Dr. Munoz. OUTPATIENT LEAD SECURITY OFFICER: Dr. Ariza at [facility]. DISCHARGE DIAGNOSIS: Biliary colic with choledocholithiasis. SECONDARY DIAGNOSES: 1. Gastroesophageal reflux disease. 2. Hyperlipidemia. 3. Colon polyps, status post resection. 4. Hypertension. 5. Chronic back pain with sciatica. 6. Nephrolithiasis. 7. Depression. 8. Status post cholecystectomy 10 years ago. MEDICATIONS AT THE TIME OF TRANSFER: 1. Acetaminophen 650 mg p.o. q.4 hours p.r.n. pain or fever. 2. Maalox Plus 30 mL p.o. q.6 hours p.r.n. indigestion. 3. Amoxicillin 500 mg p.o. t.i.d. (the patient is taking this for dental infection diagnosed as an outpatient). 4. Colace 100 mg p.o. b.i.d. p.r.n. constipation. 5. Heparin 5000 units subcutaneously q.8 hours. 6. Morphine sulfate 10 mg IV q.4 hours p.r.n. pain. 7. Ondansetron 4 mg IV q.4 hours p.r.n. nausea, vomiting. 8. Pantoprazole 40 mg p.o. daily. 9. Senna 1 tablet p.o. b.i.d. as needed for constipation. 10. Normal saline at 100 mL an hour. HOSPITAL COURSE: Mr. Lomeli is a 72-year-old male with a past medical history as stated above, who presented to the emergency room with complaints of abdominal pain. The pain was located in the right upper quadrant, crampy in nature. For more details about his presentation, I refer you to the history and physical. In the emergency room, the patient has had a gallbladder ultrasound that showed status post cholecystectomy and no acute process seen in the right upper quadrant, and a CT of the abdomen and pelvis showed nonobstructive right nephrolithiasis with stable colonic diverticulosis. His laboratory tests were remarkable for LFT elevation with total bilirubin of 3.7, direct 1.6, indirect 2.1; AST of 264, ALT of 295. The patient underwent an MRCP that showed a 0.6 cm filling defect in the distal common duct that is consistent with a common duct calculi. Unfortunately, we do not have the capabilities to perform an ERCP in our facility at this time and for that reason, [facility] was contacted and the patient was accepted in transfer by Dr. Guerrero for an ERCP. The case was also discussed with Dr. Munoz. Of note, the patient has no fever, no tachycardia, no leukocytosis or any other signs of infection. At this point, there is no sign of cholangitis, only biliary colic secondary to cholelithiasis. PHYSICAL EXAMINATION: Vital Signs: Temperature 97.7, heart rate is 50, respiratory rate 16, oxygen saturation 98% on room air, blood pressure is 135/ 68. General: The patient is a pleasant, elderly gentleman, lying in bed, in no acute distress. CVS: Normal S1, S2. Regular rate and rhythm. Chest: Breath sounds present bilaterally with no added sounds. Abdomen is soft with mild right upper quadrant tenderness, but no guarding, no rebound. Bowel sounds are present. Rosado sign is negative. Neuro: He is alert and oriented x3. Able to move all 4 extremities. DIET: The patient is on clear liquids. ACTIVITIES: As tolerated. DISPOSITION: Transfer to [facility]. CONDITION: Stable. STATUS WHILE IN THE HOSPITAL: Inpatient. Please keep in mind that this is a summarized version of this patient's hospital stay. If you need more information, please feel free to call me at or please obtain full medical records. TIME SPENT: Approximately 45 minutes was spent to complete this discharge. [id number]/CPS #: [id number]
== END 2018-09-25 18:30 | disposition short-term general hospital (02) | DRG 446 ==
LOC: ED 19:24 → SSU 09-25 02:01
PROVIDERS: ADMIT Pediatrics; ATTEND Internal Medicine
DX: K80.50 Calculus of bile duct without cholangitis or cholecystitis without obstruction (principal); K21.9 Gastro-esophageal reflux disease without esophagitis; E78.5 Hyperlipidemia, unspecified; I10 Essential (primary) hypertension; G89.29 Other chronic pain; F32.9 Major depressive disorder, single episode, unspecified; N20.0 Calculus of kidney; K57.30 Diverticulosis of large intestine without perforation or abscess without bleeding; M54.30 Sciatica, unspecified side; K08.89 Other specified disorders of teeth and supporting structures; E78.00 Pure hypercholesterolemia, unspecified; Z90.49 Acquired absence of other specified parts of digestive tract; Z79.01 Long term (current) use of anticoagulants; Z82.49 Family history of ischemic heart disease and other diseases of the circulatory system; Z86.010 Personal history of colon polyps
CPT/HCPCS: 36415; 74177; 74181; 76376; 76705; 80053; 82248; 83605; 83690; 85025; 86140; 99283; A9270-GY; J1644; J2270; J2405; Q9967

== ENCOUNTER 2020-03-07 05:21 | Observation (INO) ==
[2020-03-07 06:10] LABS: ABS Eosinophils 0.1 10^3/ul (0-0.6); ABS Lymphocytes 2.5 10^3/ul (1.0-4.8); ABS Monocytes 0.4 10^3/ul (0-0.8); ABS Neutrophils 3.5 10^3/ul (1.5-7.7); Eosinophil % 1.4 %; Hematocrit 45 % (42-52); Hemoglobin 15.9 g/dL (14.0-18.0); Lymphocyte % 38.7 %; Mean Corpuscular HGB Conc 36 g/dL (31-36); Mean Corpuscular Hemoglobin 31 pg (27-31); Mean Corpuscular Volume 86 fL (80-94); Mean Platelet Volume 7.6 fL (7.4-10.4); Nucleated Red Blood Cells % 0.1; Platelet Count 183 10^3/uL (150-450); Red Blood Count 5.17 10^6 /uL (4.18-5.48); Red Cell Distribution Width 13 % (10-15); White Blood Count 6.5 10^3/uL (3.5-10.8)
[2020-03-07 06:17] LABS: Albumin 4.2 g/dL (3.2-5.2); BUN/Creatinine Ratio 14.2 (8-20); Calcium 8.7 mg/dL (8.6-10.3); EGFR African American 82.9 (>60); EGFR Non-African American 68.5 (>60); Globulin 2.1 g/dL (2-4); INR 1.04 (0.82-1.09); Potassium 3.7 mmol/L (3.5-5.0); Total Bilirubin 1.8 mg/dL (0.2-1.0); Total Protein 6.3 g/dL (6.4-8.9)
[2020-03-07 06:18] LABS: Troponin I 0.01 ng/mL (<0.03)
[2020-03-07] MEDS ORDERED: Ondansetron 4 mg VIAL 2 MG/ML 2 ml VIAL IV PRN (09:17)
[2020-03-07 09:38] LABS: Magnesium 1.5 mg/dL (1.9-2.7)
[2020-03-07] MEDS: Enoxaparin 40 MG/0.4 ML SYR SUBCUT SCH (12:07)
[2020-03-08 07:12] LABS: BUN/Creatinine Ratio 12.2 (8-20); Calcium 8.5 mg/dL (8.6-10.3); EGFR African American 90.7 (>60); HDL Cholesterol 36.1 mg/dL; Magnesium 1.6 mg/dL (1.9-2.7); Potassium 4.1 mmol/L (3.5-5.0)
[2020-03-08] MEDS ORDERED: Magnesium Sulfate 2 gm BAG 2 GM/50 ML BAG IVPB ONE (09:18)
[2020-03-08] MEDS: Enoxaparin 40 MG/0.4 ML SYR SUBCUT SCH (10:28)
[2020-03-08 11:52] VITALS: BP 128/67
== END 2020-03-08 13:25 | disposition home or self-care (01) ==
LOC: ED 05:21 → MEDTELE 05:21
PROVIDERS: ADMIT Internal Medicine; ATTEND Internal Medicine

== ENCOUNTER 2023-09-04 07:49 | Inpatient (IN) ==
[2023-09-04] MEDS ORDERED: ceFAZolin 2 GM PREMIX 2 GM/50 ML BAG ONE (08:16)
[2023-09-04 08:39] LABS: Rapid COVID-19 Molecular Undetected (Undetected)
[2023-09-04] MEDS ORDERED: Propofol 10 MG/ML 20 ML BTL ONE ×2 (10:19→12:48)
[2023-09-04] MEDS ORDERED: Midazolam 2 mg/2 ml VIAL 1 mg/ml 2 ml VIAL (2 mg) ONE ×2 (10:19→12:28)
[2023-09-04] MEDS ORDERED: Ondansetron 4 mg VIAL 2 MG/ML 2 ml VIAL ONE (10:19)
[2023-09-04] MEDS ORDERED: Dexamethasone IV 4 MG/ML VIAL 1 ml VIAL ONE (10:19)
[2023-09-04] MEDS ORDERED: fentaNYL 100 mcg/2 ml 50 MCG/ML VIAL ONE (10:19)
[2023-09-04] MEDS ORDERED: Lidocaine 2% PF 5 ML VIAL ONE (10:19)
[2023-09-04] MEDS ORDERED: Rocuronium 50 mg VIAL 10 mg/ml 5 ml VIAL (50 mg) ONE (10:19)
[2023-09-04] MEDS ORDERED: Phenylephrine 40 mcg/mL 10mL (400mcg) SYRINGE ONE ×2 (12:16→12:40)
[2023-09-04] MEDS ORDERED: Midazolam 10 mg/10 ml VIAL 1 mg/ml 10 ml VIAL (10 mg) ONE (12:43)
[2023-09-04] MEDS: Propofol 10 mg/ml 100 ML BTL 1,000 MG/100 ML BTL IV SCH (13:45)
[2023-09-04] MEDS: Buffered Lidocaine 1% SYRIN 1 ml INTRADERM ONE (14:14)
[2023-09-04 14:22] LABS: ABS Basophils 0.1 10^3/uL (0.0-0.1); ABS Lymphocytes 0.5 10^3/uL (1.0-4.8); ABS Monocytes 0.2 10^3/uL (0.0-1.1); ABS Neutrophils 10.5 10^3/uL (1.5-7.6); ABS Nucleated RBC 0.02 10^3/ul; Eosinophil % 0.1 %; Hematocrit 44.4 % (38-53); Hemoglobin 16.1 g/dL (13.2-16.3); Lymphocyte % 4.8 %; Mean Corpuscular Hemoglobin 32.4 pg (27-33); Mean Corpuscular Hgb Conc 36.2 g/dL (31-36); Mean Corpuscular Volume 89.6 fL (80-97); Mean Platelet Volume 8.2 fL (7.5-11.2); Nucleated Red Blood Cells % 0.2 %/100WBC (0.0-0.8); Platelet Count 210 10^3/uL (150-450); Red Blood Count 4.96 10^6/uL (4.06-5.63); Red Cell Distribution Width 13.7 % (12-17); White Blood Count 11.3 10^3/uL (3.6-10.2)
[2023-09-04] MEDS: Chlorhexidine MOUTHWASH 0.12% 15 ML UDC SWISH SPIT SCH (14:40)
[2023-09-04] MEDS: Enoxaparin 40 MG/0.4 ML SYR SUBCUT SCH (14:40)
[2023-09-04] MEDS: Pantoprazole VIAL 40 MG VIAL IV SCH (14:40)
[2023-09-04] MEDS ORDERED: Sulfur Hexaflouride MICROSPHR 25 MG VIAL ONE (14:41)
[2023-09-04 15:34] LABS: Albumin 4.1 g/dL (3.2-5.2); Albumin/Globulin Ratio 2.3 (1-3); Alkaline Phosphatase 51 U/L (35-149); Blood Urea Nitrogen 17 mg/dL (6-24); CO2 Carbon Dioxide 25 mmol/L (22-32); Calcium 8.2 mg/dL (8.6-10.3); Chloride 103 mmol/L (101-111); Creatinine, Serum 1.04 mg/dL (0.67-1.17); Globulin 1.8 g/dL (2-4); Glucose 124 mg/dL (70-100); Sodium 133 mmol/L (135-145); Total Bilirubin 0.9 mg/dL (0.2-1.0); Total Protein 5.9 g/dL (6.4-8.9); eGFR CKD-EPI 74.4 (>60)
[2023-09-04] MEDS: Lactated Ringers 1000 ml BAG 1,000 ML IV SCH (15:36)
[2023-09-04 15:38] LABS: Anion Gap 5 mmol/L (2-16)
[2023-09-04] MEDS: Propofol 10 mg/ml 100 ML BTL 1,000 MG/100 ML BTL ONE (15:59)
[2023-09-04 16:10] LABS: Potassium Redraw 4.6 mmol/L (3.5-5.0)
[2023-09-05 10:09] VITALS: BP 136/63
== END 2023-09-05 16:05 | disposition home or self-care (01) | DRG 989 ==
LOC: OR 07:49 → ICU 12:39 → MEDTELE 22:38
PROVIDERS: ADMIT Surgery; ATTEND Surgery